=== PATIENT | female | born 1960 | race Hispanic/Latino ===

== ENCOUNTER 2020-03-11 19:57 | Emergency (ER) | payer SELFPAY ==
[~2020-03-11] VITALS: Ht 157.5 cm; Wt 79.4 kg
[2020-03-11] MEDS ORDERED: TRAMADOL HCL 50 MG TAB PO ONE (20:15)
[2020-03-11] MEDS ORDERED: CLONIDINE HCL 0.1 MG TAB PO ONE (22:30)
[2020-03-12] MEDS ORDERED: HYDRALAZINE HCL 20 MG/ML VIAL IV STA (00:30)
[2020-03-12 00:54] LABS: BASOPHILS # (AUTO) 0.1 (0.0-0.1); BASOPHILS % 0.6 % (0.0-1.0); EOSINOPHILS # (AUTO) 0.3 (0.0-0.4); EOSINOPHILS % 3.7 % (0.0-6.0); HEMATOCRIT 47.6 % (34.2-44.1); HEMOGLOBIN 15.5 g/dL (12.0-16.0); LYMPHOCYTES # (AUTO) 1.5 (1.0-3.2); LYMPHOCYTES % 18.9 % (18.0-39.1); MEAN CORPUSCULAR HGB CONC 32.6 g/dL (31-35); MEAN CORPUSCULAR VOLUME 92.1 fL (81-99); MONOCYTES # (AUTO) 0.5 (0.2-0.8); MONOCYTES % 5.8 % (4.4-11.3); NEUTROPHILS # (AUTO) 5.7 (2.1-6.9); NEUTROPHILS % 70.6 % (38.7-80.0); PLATELET COUNT 223 x10e3/uL (140-360); RED BLOOD COUNT 5.17 x10e6/uL (3.6-5.1); RED CELL DISTRIBUTION WIDTH 14.3 % (11.7-14.4)
[2020-03-12 01:05] LABS: ANION GAP 13.4 mmol/L (8-16); BLOOD UREA NITROGEN 14 mg/dL (7-26); BUN/CREATININE RATIO 19 (6-25); CALCIUM 9.3 mg/dL (8.4-10.2); CARBON DIOXIDE 25 mmol/L (22-29); CHLORIDE 106 mmol/L (98-107); CREATININE, SERUM 0.75 mg/dL (0.57-1.11); EST GLOMERULAR FILTRATION RATE > 60 ML/MIN (60-); GLUCOSE 103 mg/dL (74-118); POTASSIUM 3.4 mmol/L (3.5-5.1); SODIUM 141 mmol/L (136-145)
== END 2020-03-12 02:00 | disposition home or self-care (01) ==
LOC: ER 20:40
DX: S80.01XA Contusion of right knee, initial encounter (principal); M25.461 Effusion, right knee; V48.4XXA Person boarding or alighting a car injured in noncollision transport accident, initial encounter; Y92.89 Other specified places as the place of occurrence of the external cause; I10 Essential (primary) hypertension
CPT/HCPCS: 36415; 73562; 80048; 85025; 99284; J0360